=== PATIENT | female | born 1995 | race American Indian/Alaskan Native ===

== ENCOUNTER 2017-07-31 18:02 | Emergency (ER) | payer OTHER ==
[2017-07-31] MEDS ORDERED: NORCO 5/325 PO ONE (19:39)
[2017-07-31] MEDS ORDERED: ZOFRAN ODT PO ONE (19:39)
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
[2017-07-31 19:51] LABS: Basophils # (Auto) 0.1 K/mm3 (0.0-0.1); Basophils % (Auto) 1.2 % (0.0-1.8); Eosinophils # (Auto) 0.3 K/mm3 (0.0-0.4); Eosinophils % (Auto) 4.7 % (0.0-4.3); Hematocrit 30.7 % (30.3-42.9); Hemoglobin 9.3 gm/dl (10.1-14.3); Lymphocytes # (Auto) 2.2 K/mm3 (1.2-5.4); Mean Corpuscular HGB Conc 30 % (30-34); Monocytes # (Auto) 0.4 K/mm3 (0.0-0.8); Monocytes % (Auto) 5.5 % (0.0-7.3); Platelet Count 421 K/mm3 (140-440); Red Blood Count 4.46 M/mm3 (3.65-5.03); Red Cell Distribution Width 19.6 % (13.2-15.2)
[2017-07-31 19:57] LABS: Mean Corpuscular Hemoglobin 21 pg (28-32); Mean Corpuscular Volume 69 fl (79-97)
[2017-07-31 20:00] LABS: INR 0.89 (0.87-1.13)
[2017-07-31 20:01] LABS: Partial Thromboplastin Time 28.7 Sec. (24.2-36.6)
[2017-07-31 20:09] LABS: Alanine Aminotransferase 8 units/L (7-56); Albumin 3.6 g/dL (3.9-5); BUN/Creatinine Ratio 16; Blood Urea Nitrogen 11 mg/dL (7-17); Calcium 8.8 mg/dL (8.4-10.2); Hemolysis Index 0; Lipase 27 units/L (13-60)
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
[2017-07-31 22:42] VITALS: BP 112/82
== END 2017-07-31 22:41 | disposition home or self-care (01) ==
LOC: ED 18:02
DX: S16.1XXA Strain of muscle, fascia and tendon at neck level, initial encounter (principal); S29.012A Strain of muscle and tendon of back wall of thorax, initial encounter; S30.1XXA Contusion of abdominal wall, initial encounter; F17.200 Nicotine dependence, unspecified, uncomplicated; S09.90XA Unspecified injury of head, initial encounter; V89.2XXA Person injured in unspecified motor-vehicle accident, traffic, initial encounter; Y93.89 Activity, other specified; Y92.89 Other specified places as the place of occurrence of the external cause; Y99.8 Other external cause status
CPT/HCPCS: 36415; 70450; 72072; 72100; 72125; 74177; 80053; 83690; 84703; 85025; 85610; 85730; 99285; Q9967; Q0162

== ENCOUNTER 2018-08-19 21:26 | Outpatient (CLI) | payer MEDICAID ==
[2018-08-19] MEDS ORDERED: LACTATED RINGERS 1,000 ML IV ONE (22:38)
[2018-08-19 22:46] LABS: Bacteria,Urine 4+ /HPF (Negative); Bilirubin,Urine NEG (Negative); Blood,Urine NEG (Negative); Color,Urine Yellow (Yellow); Mucus,Urine FEW /HPF; Protein,Urine <15 mg/dL mg/dL (Negative); Urobilinogen,Urine < 2.0 mg/dL (<2.0)
[2018-08-19 23:45] VITALS: BP 118/55
--- NOTE | 2018-08-20 01:32 | Progress Note ---
Assessment and Plan No orthostatic hypotension, no cervical change, will allow home Subjective - Subjective Date of service: 08/20/18 Interval history: sleeping Patient reports: no new complaints Objective - Vital Signs Vital Signs: Vital Signs - 12hr 08/19/18 08/19/18 08/19/18 21:58 21:59 23:42 Temperature 97.1 F L Pulse Rate 93 H 98 H Respiratory 18 Rate Blood Pressure 118/63 123/57 08/19/18 23:44 Temperature Pulse Rate 102 H Respiratory Rate Blood Pressure 118/55 - Exam FHR: category 1 Cervical Dilatation: 0 Cervical Effacement Percentage: 0 station: -4 - Labs Labs: Abnormal Labs 08/19/18 21:40 Urine WBC (Auto) 78.0 H U Epithel Cells (Auto) 68.0 H Laboratory Results - last 24 hr 08/19/18 21:40 Urine Color Yellow Urine Turbidity Cloudy Urine pH 6.0 Ur Specific [place] 1.006 Urine Protein <15 mg/dl Urine Glucose (UA) Neg Urine Ketones Neg Urine Blood Neg Urine Nitrite Neg Urine Bilirubin Neg Urine Urobilinogen < 2.0 Ur Leukocyte Esterase Lg Urine WBC (Auto) 78.0 H Urine RBC (Auto) 31.0 U Epithel Cells (Auto) 68.0 H Urine Bacteria (Auto) 4+ Urine Mucus Few
== END 2018-08-20 02:00 | disposition home or self-care (01) ==
LOC: TRG 21:26
PROVIDERS: ATTEND Obstetrics & Gynecology
DX: O47.02 False labor before 37 completed weeks of gestation, second trimester (principal); O99.512 Diseases of the respiratory system complicating pregnancy, second trimester; J45.909 Unspecified asthma, uncomplicated; Z3A.27 27 weeks gestation of pregnancy
CPT/HCPCS: 59025; 81001